=== PATIENT | female | born 1955 | race Caucasian/White ===

== ENCOUNTER → 2018-03-20 15:32 | Outpatient (CLI) | payer OTHER, SELFPAY ==
[2018-03-08 15:29] VITALS: BMI 37.6
--- NOTE | 2018-03-20 15:36 | CT_ITS ---
STUDY: CT SOFT TISSUE NECK WITH CONTRAST REASON FOR EXAM: Female, 62 years old. Lymphoma. Breast cancer. RADIATION DOSAGE (If Supplied By Facility): CTDIvol = ( 21.56 ) mGy, DLP = ( 667.67 ) mGycm TECHNIQUE: The patient was scanned in a multi-detector CT scanner. High resolution transaxial imaging was performed following intravenous administration of 100 ml of Isovue 300 contrast material. Sagittal and coronal images were reconstructed. Individualized dose optimization techniques were used for this CT. COMPARISON: None. FINDINGS: Normal bilateral parotid glands. Normal bilateral tax specialist spaces. Normal bilateral parapharyngeal spaces. Normal bilateral carotid spaces. Normal bilateral sublingual and submandibular glands and spaces. Normal visualized nasopharynx. Normal retropharyngeal space. Normal perivertebral space. Normal visualized bilateral faucial tonsils. The visualized tongue, tongue base and oropharynx are normal. The visualized cervical lymph nodes (levels I-) are within normal size limits, and maintain normal morphology. There is no demonstrated solid or cystic mass lesion. There is no abnormal contrast enhancement. Normal epiglottis, bilateral vallecula and hypopharynx. The pre-epiglottic and paraglottic adipose spaces are normal. Normal visualized bilateral piriform sinuses, aryepiglottic folds, vocal cords, and arytenoid-cricoid articulations. Normal subglottic trachea. Normal bilateral lobes of the thyroid gland. Normal visualized pulmonary apices. Normal visualized paranasal sinuses. There is multilevel degenerative changes of the cervical spine. CT/Soft Tissue Neck WITH Contrast IMPRESSION: Normal enhanced CT examination of the soft tissues of the neck. No definite adenopathy. Electronically Signed: Noe Mccrary MD at 16:44 EDT , Service support ,
[2018-03-20 16:01] LABS: CREATININE FINGERSTICK 0.7 mg/dL (0.55-1.02); EGFR FINGERSTICK > 60.0000 mL/min (>60)
== END ==
PROVIDERS: Visit Provider Student in an Organized Health Care Education/Training Program
DX: C88.4 Extranodal marginal zone B-cell lymphoma of mucosa-associated lymphoid tissue [MALT-lymphoma] (principal)
CPT/HCPCS: 70491; Q9967

== ENCOUNTER → 2018-04-09 09:23 | Outpatient (CLI) | payer OTHER, SELFPAY ==
[2018-03-08 15:29] VITALS: BMI 37.6
--- NOTE | 2018-04-09 09:23 | DT_ITS ---
This patient was seen during an EMR downtime April 02, 2018 - April 09, 2018. This patient may have a combination of paper and electronic documentation or all paper documentation. All documentation is viewable within the e-chart portion of [facility] for each patient visit.
--- NOTE | 2018-04-09 10:00 | PET_ITS ---
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 COMPARISON EXAMINATION: CT of the neck report dated 03/20/17, CT of the chest, abdomen and pelvis report dated 02/12/18. INDEX LESION SIZE SUV INTERPRETATION Left anterior chest wall, breast-superficial 50.8 mm x 7.8 mm (frame 229) 3.5 Fulfills quantitative criteria for viable neoplasm TECHNIQUE: Following the intravenous administration of 15.3 mCi of F-18 deoxyglucose via the right antecubital fossa, multiplanar image acquisitions of the neck, chest, abdomen and pelvis to level of mid thigh, obtained at one hour post radiopharmaceutical administration contemporaneously interpreted with the current CT of the neck, chest, abdomen and pelvis to level of mid thigh, dated 04/09/[address] of the neck report dated 03/20/17, CT of the chest, abdomen and pelvis report dated 02/12/18 reveal: SERUM GLUCOSE LEVEL: 98 mg/dl. HEIGHT: 63 inches. WEIGHT: 210 lbs. FINDINGS: 1. An increase in glucose metabolism is multifocally apparent in the superficial aspect of the left breast, anterior chest wall generating a calculated maximum standard uptake value of 3.5. The maximal axial diameter of the metabolic, morphologic abnormality on review of CT of the thorax dated 04/09/18 is 50.8 mm (transverse) x 7.8 mm (AP). 2. Normal physiologic distribution of the radiopharmaceutical is apparent in the hepatic (3.2) and splenic parenchyma, both renal units, bladder and visualized intestinal tract. There is uniform distribution of the radiopharmaceutical concentration compared on the cerebellar hemispheres and cerebral cortex. Diffuse intestinal tract activity is noted throughout all four quadrants of the abdominal-pelvic retroperitoneum, mesentery consistent with normal physiologic distribution of the radiopharmaceutical. Pertinent CT findings are as follows. CHEST: Scattered bilateral axillary soft tissue densities with fatty hilus formation are ametabolic. There are no parenchymal densities-nodules noted in the right-left hemithorax demonstrating discernible, quantitatively significant increased glucose metabolism. Atherosclerotic calcification is defined in the thoracic aorta without evidence of dilatation, aneurysm formation. Coronary arterial calcification is observed. Subcentimeter mediastinal soft tissue densities are non-glucose avid. ABDOMEN AND PELVIS: Atherosclerotic calcification is defined in the abdominal aorta without evidence of dilatation, aneurysm formation. Pelvic arterial calcification is observed. Colonic diverticulosis is defined. The uterus appears surgically absent. Right-left inguinal soft tissue densities reveal no evidence of increased glucose metabolism. SKELETAL: Degenerative changes defined in the cervical, thoracic and lumbar spine demonstrate no evidence for glucose hypermetabolism. PET/PET/CT Tumor Base -Thigh Init IMPRESSION: 1. ABNORMAL EXAMINATION INDICATIVE OF MALIGNANT VIABLE NEOPLASM. 2. Increased glucose metabolism defined in the left anterior chest wall, superficial aspect of the left breast fulfills quantitative criteria for viable neoplasm. 3. No other quantitatively significant hypermetabolic abnormalities are defined. Electronic Signature Wai Haney D.O. Electronically Signed: Wai Haney DO at 22:38 EDT Tel , Service support ,
== END ==
PROVIDERS: Visit Provider Student in an Organized Health Care Education/Training Program
DX: C88.4 Extranodal marginal zone B-cell lymphoma of mucosa-associated lymphoid tissue [MALT-lymphoma] (principal)
CPT/HCPCS: 77280; 78815; A9552; A4216

== ENCOUNTER → 2020-12-07 12:31 | Outpatient (CLI) | payer MEDICARE, BC, SELFPAY ==
[2020-11-06 09:57] VITALS: BMI 38.6
--- NOTE | 2020-12-07 12:32 | MRI_ITS ---
STUDY: MRI BRAIN WITHOUT CONTRAST REASON FOR EXAM: Female, 65 years old. hx sm cell lung cancer,eval for mets, low gfr TECHNIQUE: Standardized multiplanar fat and water weighted pulse sequences were obtained. COMPARISON: None. FINDINGS: Normal size of the ventricles and extra-axial spaces for the patient''s age. There are a limited number of small white matter hyperintensities, distributed throughout the deep white matter tracts of the cerebral hemispheres, consistent with mild chronic white matter ischemic changes. There is no evidence for recent intracranial ischemia or other cause of cytotoxic edema on diffusion weighted imaging (DWI). Small 6.4 mm benign cyst at the junction of the putamen and caudate nucleus on the right noted, which is of no clinical significance. No visualized focal brain parenchymal lesions or vasogenic edema. No demonstrated evidence of metastatic disease to the brain. Normal bilateral basal ganglia. Normal thalami. There is no extra-axial fluid accumulation. Normal flow voids within the major intracranial circulation suggesting patency by spin echo criteria. Normal sella turcica, pituitary gland, infundibular stalk, optic chiasm and hypothalamus. Normal tectal plate and pineal gland. Normal midbrain, kat and medulla. Normal cerebellum. Normal basal cisterns. Normal bilateral temporal bones. Normal bilateral internal auditory canals. No demonstrated orbital abnormality, within the constraints of a routine brain study. Normal visualized paranasal sinuses. Normal calvarium and skull base. Normal visualized soft tissue structures. Normal visualized upper cervical spine. MRI/Brain without Contrast IMPRESSION: 1. Minimal chronic changes of the brain, as described above. 2. Small 6.4 mm benign cyst at the junction of the putamen and caudate nucleus on the right noted, which is of no clinical significance. No visualized focal brain parenchymal lesions or vasogenic edema. No demonstrated evidence of metastatic disease to the brain. 3. No contrast was administered, the patient can return for postcontrast sequences for completeness. Electronically Signed: Cayetano Ni MD at 23:05 EST , Service support ,
== END ==
PROVIDERS: Referring Provider Student in an Organized Health Care Education/Training Program; Visit Provider Student in an Organized Health Care Education/Training Program
DX: Z51.0 Encounter for antineoplastic radiation therapy (principal); C34.90 Malignant neoplasm of unspecified part of unspecified bronchus or lung
CPT/HCPCS: 70551; 77336; 77387; 77412